=== PATIENT | male | born 1955 | race Caucasian/White ===

== ENCOUNTER → 2016-12-04 | Outpatient (CLI) | payer OTHER | LOC: HYPER 07:07 | DX: T87.89 Other complications of amputation stump (principal); L73.2 Hidradenitis suppurativa; L72.3 Sebaceous cyst; Z87.891 Personal history of nicotine dependence; Z72.89 Other problems related to lifestyle; I12.0 Hypertensive chronic kidney disease with stage 5 chronic kidney disease or end stage renal disease; N18.6 End stage renal disease; Y83.5 Amputation of limb(s) as the cause of abnormal reaction of the patient, or of later complication, without mention of misadventure at the time of the procedure ==

== ENCOUNTER → 2017-06-25 | Outpatient (CLI) | payer BC, OTHER | LOC: HYPER 01-01 09:32 | DX: T87.89 Other complications of amputation stump (principal); L73.2 Hidradenitis suppurativa; R60.9 Edema, unspecified; I12.0 Hypertensive chronic kidney disease with stage 5 chronic kidney disease or end stage renal disease; N18.6 End stage renal disease; Z99.2 Dependence on renal dialysis; Z87.891 Personal history of nicotine dependence; Z72.89 Other problems related to lifestyle; Y83.5 Amputation of limb(s) as the cause of abnormal reaction of the patient, or of later complication, without mention of misadventure at the time of the procedure ==

== ENCOUNTER → 2017-09-17 | Outpatient (CLI) | payer BC, OTHER | LOC: HYPER 06:49 | DX: T87.89 Other complications of amputation stump (principal); I12.0 Hypertensive chronic kidney disease with stage 5 chronic kidney disease or end stage renal disease; N18.6 End stage renal disease; I11.0 Hypertensive heart disease with heart failure; I50.89 Other heart failure; L73.2 Hidradenitis suppurativa; Z89.511 Acquired absence of right leg below knee; Z87.891 Personal history of nicotine dependence; Y83.5 Amputation of limb(s) as the cause of abnormal reaction of the patient, or of later complication, without mention of misadventure at the time of the procedure ==

== ENCOUNTER → 2018-03-10 | Outpatient (CLI) | payer OTHER, BC | LOC: HYPER 07:12 | DX: L73.2 Hidradenitis suppurativa (principal); I12.0 Hypertensive chronic kidney disease with stage 5 chronic kidney disease or end stage renal disease; N18.6 End stage renal disease; Z89.511 Acquired absence of right leg below knee; Z87.891 Personal history of nicotine dependence ==

== ENCOUNTER → 2018-06-10 | Outpatient (CLI) | payer OTHER | LOC: HYPER 07:24 | DX: L73.2 Hidradenitis suppurativa (principal); N18.6 End stage renal disease; Z87.891 Personal history of nicotine dependence; Z89.511 Acquired absence of right leg below knee ==

== ENCOUNTER → 2018-09-16 | Outpatient (CLI) | payer OTHER | LOC: HYPER 07:02 | DX: T87.89 Other complications of amputation stump (principal); L73.2 Hidradenitis suppurativa; I12.9 Hypertensive chronic kidney disease with stage 1 through stage 4 chronic kidney disease, or unspecified chronic kidney disease; N18.6 End stage renal disease; R60.9 Edema, unspecified; Z87.891 Personal history of nicotine dependence; Y83.5 Amputation of limb(s) as the cause of abnormal reaction of the patient, or of later complication, without mention of misadventure at the time of the procedure ==

== ENCOUNTER → 2018-12-16 | Outpatient (CLI) | payer OTHER | LOC: HYPER 06:57 | DX: T87.89 Other complications of amputation stump (principal); L73.2 Hidradenitis suppurativa; S80.862D Insect bite (nonvenomous), left lower leg, subsequent encounter; I12.9 Hypertensive chronic kidney disease with stage 1 through stage 4 chronic kidney disease, or unspecified chronic kidney disease; N18.6 End stage renal disease; L84 Corns and callosities; R60.9 Edema, unspecified; Z89.511 Acquired absence of right leg below knee; Z87.891 Personal history of nicotine dependence; W57.XXXD Bitten or stung by nonvenomous insect and other nonvenomous arthropods, subsequent encounter; Y83.5 Amputation of limb(s) as the cause of abnormal reaction of the patient, or of later complication, without mention of misadventure at the time of the procedure ==

== ENCOUNTER → 2019-04-07 | Outpatient (CLI) | payer OTHER | LOC: HYPER 15:22 | DX: T81.31XD Disruption of external operation (surgical) wound, not elsewhere classified, subsequent encounter (principal); L73.2 Hidradenitis suppurativa; I12.9 Hypertensive chronic kidney disease with stage 1 through stage 4 chronic kidney disease, or unspecified chronic kidney disease; N18.6 End stage renal disease; R60.9 Edema, unspecified; Z89.511 Acquired absence of right leg below knee; Z87.891 Personal history of nicotine dependence; Y83.8 Other surgical procedures as the cause of abnormal reaction of the patient, or of later complication, without mention of misadventure at the time of the procedure ==

== ENCOUNTER → 2019-09-22 | Outpatient (CLI) | payer OTHER | LOC: HYPER 14:55 | DX: S01.302A Unspecified open wound of left ear, initial encounter (principal); L73.2 Hidradenitis suppurativa; T87.81 Dehiscence of amputation stump; R60.0 Localized edema; N18.6 End stage renal disease; Y83.5 Amputation of limb(s) as the cause of abnormal reaction of the patient, or of later complication, without mention of misadventure at the time of the procedure; X58.XXXA Exposure to other specified factors, initial encounter; Y93.89 Activity, other specified; Y92.89 Other specified places as the place of occurrence of the external cause; Y99.8 Other external cause status ==

== ENCOUNTER → 2020-03-22 | Outpatient (CLI) | payer OTHER | LOC: HYPER 14:57 | PROVIDERS: ATTEND Emergency Medicine | DX: T87.81 Dehiscence of amputation stump (principal); T81.89XA Other complications of procedures, not elsewhere classified, initial encounter; S01.302D Unspecified open wound of left ear, subsequent encounter; L73.2 Hidradenitis suppurativa; R21 Rash and other nonspecific skin eruption; I12.0 Hypertensive chronic kidney disease with stage 5 chronic kidney disease or end stage renal disease; N18.6 End stage renal disease; R60.9 Edema, unspecified; Z94.0 Kidney transplant status; Z87.891 Personal history of nicotine dependence; Y83.5 Amputation of limb(s) as the cause of abnormal reaction of the patient, or of later complication, without mention of misadventure at the time of the procedure; Y83.8 Other surgical procedures as the cause of abnormal reaction of the patient, or of later complication, without mention of misadventure at the time of the procedure; X58.XXXD Exposure to other specified factors, subsequent encounter; Y92.238 Other place in hospital as the place of occurrence of the external cause ==

== ENCOUNTER → 2020-07-18 | Outpatient (CLI) | payer OTHER | LOC: HYPER 15:24 | PROVIDERS: ATTEND Emergency Medicine | DX: T87.81 Dehiscence of amputation stump (principal); L73.2 Hidradenitis suppurativa; S01.302D Unspecified open wound of left ear, subsequent encounter; I12.0 Hypertensive chronic kidney disease with stage 5 chronic kidney disease or end stage renal disease; N18.6 End stage renal disease; R60.9 Edema, unspecified; E66.01 Morbid (severe) obesity due to excess calories; Z94.0 Kidney transplant status; Z68.39 Body mass index [BMI] 39.0-39.9, adult; X58.XXXD Exposure to other specified factors, subsequent encounter; Y83.5 Amputation of limb(s) as the cause of abnormal reaction of the patient, or of later complication, without mention of misadventure at the time of the procedure ==

== ENCOUNTER → 2020-09-27 | Outpatient (CLI) | payer OTHER | LOC: HYPER 08:00 | PROVIDERS: ATTEND Emergency Medicine | DX: T87.81 Dehiscence of amputation stump (principal); L89.892 Pressure ulcer of other site, stage 2; L73.2 Hidradenitis suppurativa; R60.9 Edema, unspecified; E66.01 Morbid (severe) obesity due to excess calories; I12.0 Hypertensive chronic kidney disease with stage 5 chronic kidney disease or end stage renal disease; N18.6 End stage renal disease; Z94.0 Kidney transplant status; Z68.39 Body mass index [BMI] 39.0-39.9, adult; Y83.5 Amputation of limb(s) as the cause of abnormal reaction of the patient, or of later complication, without mention of misadventure at the time of the procedure ==

== ENCOUNTER → 2020-12-21 | Outpatient (CLI) | payer OTHER | LOC: HYPER 09:05 | PROVIDERS: ATTEND Emergency Medicine | DX: T87.81 Dehiscence of amputation stump (principal); L89.892 Pressure ulcer of other site, stage 2; L73.2 Hidradenitis suppurativa; R60.9 Edema, unspecified; E66.01 Morbid (severe) obesity due to excess calories; I12.0 Hypertensive chronic kidney disease with stage 5 chronic kidney disease or end stage renal disease; N18.6 End stage renal disease; Z94.0 Kidney transplant status; Z68.39 Body mass index [BMI] 39.0-39.9, adult; Y83.5 Amputation of limb(s) as the cause of abnormal reaction of the patient, or of later complication, without mention of misadventure at the time of the procedure ==